=== PATIENT | female | born 1980 | race Caucasian/White ===

== ENCOUNTER 2019-11-09 23:24 | Emergency (ER) | payer OTHER ==
[~2019-11-09] VITALS: Ht 175.3 cm; Wt 122.5 kg
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
[2019-11-10] MEDS ORDERED: CYCLOBENZAPRINE 10 MG TABLET ONE (00:08)
[2019-11-10] MEDS ORDERED: IBUPROFEN 400 MG TABLET ONE (00:08)
--- NOTE | 2019-11-10 00:11 | NUR ---
Patient discharged to home in stable condition. Written and verbal after care instructions given. Patient verbalizes understanding of instruction and RX. PT ambulatory with a steady gait.
[2019-11-10 00:12] VITALS: BP 132/78
[2019-11-10] MEDS ORDERED: IBUPROFEN 400 MG TABLET PO ONE (00:30)
[2019-11-10] MEDS ORDERED: CYCLOBENZAPRINE 10 MG TABLET PO ONE (00:30)
== END 2019-11-10 00:13 | disposition home or self-care (01) ==
LOC: ER 23:24
DX: M79.18 Myalgia, other site (principal); M54.2 Cervicalgia; Z88.0 Allergy status to penicillin; Z98.890 Other specified postprocedural states; V49.49XA Driver injured in collision with other motor vehicles in traffic accident, initial encounter; Y93.89 Activity, other specified; Y92.488 Other paved roadways as the place of occurrence of the external cause; Y99.8 Other external cause status